=== PATIENT | female | born 1970 | race Caucasian/White ===

== ENCOUNTER 2016-10-24 11:51 | Day surgery (SDC) | payer OTHER ==
[~2016-10-24] VITALS: Ht 166.4 cm; Wt 97.0 kg
[~2016-10-24 11:51] MED LIST: BUPIVACAINE/PF-EPI 0.5% 1:200K ONE; HYDR-3240 PO; MECO5000 PO; OMEP-110 PO; OXYC5CAP4 PO
[2016-10-24 12:20] VITALS: BP 99/67
[2016-10-24] MEDS ORDERED: LIDOCAINE 1%, 2ML ONE (12:26)
[2016-10-24] MEDS ORDERED: LIDOCAINE 1%, 2ML SQ PRN (12:30)
[2016-10-24] MEDS ORDERED: VITA1TAB19 PO (12:33)
[2016-10-24] MEDS ORDERED: PREG75CA PO (12:33)
[2016-10-24] MEDS ORDERED: TIZA4CAP PO (12:33)
[2016-10-24] MEDS ORDERED: PHEN30CA2 PO (12:33)
[2016-10-24] MEDS ORDERED: SOLI10TA PO (12:33)
[2016-10-24] MEDS ORDERED: LORA1TAB PO (12:33)
[2016-10-24] MEDS ORDERED: IBUP800T PO (12:33)
[2016-10-24 12:41] LABS: HCG UR OBC PASS
[2016-10-24] MEDS: LACTATED RINGERS 1,000 ML IV SCH ×2 (12:52→15:08)
[2016-10-24] MEDS ORDERED: SUCCINYLCHOLINE 20 MG/ML, 10ML ONE (16:02)
[2016-10-24] MEDS ORDERED: CEFOTETAN 2 GM ONE (16:02)
[2016-10-24] MEDS ORDERED: ONDANSETRON 2MG/ML, 2ML ONE (16:02)
[2016-10-24] MEDS ORDERED: PROPOFOL 10 MG/ML, 20ML ONE (16:02)
[2016-10-24] MEDS ORDERED: ESMOLOL 100 MG/10 ML ONE (16:02)
[2016-10-24] MEDS ORDERED: ROCURONIUM 10 MG/ML ONE (16:02)
[2016-10-24] MEDS ORDERED: DEXAMETHASONE 4 MG/ML, 1ML ONE (16:02)
[2016-10-24] MEDS ORDERED: MIDAZOLAM 1 MG/ML, 2ML ONE (16:03)
[2016-10-24] MEDS ORDERED: FENTANYL PF 250 MCG/5ML ONE (16:03)
[2016-10-24] MEDS ORDERED: BUPIVACAINE/PF-EPI 0.25% 1:200K INFIL ONE (16:21)
[2016-10-24] MEDS ORDERED: LACTATED RINGERS 1,000 ML IV SCH (16:59)
[2016-10-24] MEDS ORDERED: hydrALAzine 20 MG/ML, 1ML IV PRN (17:00)
[2016-10-24] MEDS ORDERED: ONDANSETRON 2MG/ML, 2ML IVPush PRN ×2 (17:00)
[2016-10-24] MEDS ORDERED: MIDAZOLAM 1 MG/ML, 2ML IV PRN (17:00)
[2016-10-24] MEDS ORDERED: PROMETHAZINE 25 MG/ML, 1ML IV PRN (17:00)
[2016-10-24] MEDS ORDERED: MEPERIDINE/PF 25MG/0.5ML IVPush PRN (17:00)
[2016-10-24] MEDS ORDERED: HYDROcodone/APAP 7.5-325MG/15ML UDC PO PRN ×2 (17:00)
[2016-10-24] MEDS ORDERED: LABETALOL 5MG/ML, 20ML IV PRN (17:00)
[2016-10-24] MEDS ORDERED: EPHEDRINE 50 MG/ML, 1ML IVPush PRN (17:00)
[2016-10-24] MEDS ORDERED: KETOROLAC 30 MG/1 ML IV PRN (17:00)
[2016-10-24] MEDS ORDERED: HYDROmorphone 1 MG/ML, 1ML IV PRN (17:00)
[2016-10-24] MEDS ORDERED: ACETAMINOPHEN 325 MG TABLET PO PRN (17:00)
[2016-10-24] MEDS ORDERED: KETOROLAC 30 MG/1 ML IVPush PRN (17:00)
[2016-10-24] MEDS ORDERED: HYDROmorphone 2 MG/ML, 1ML IVPush PRN (17:00)
[2016-10-24] MEDS ORDERED: OXYcodone 5 MG/5 ML ORAL.SOL UDC PO PRN (17:00)
[2016-10-24] MEDS ORDERED: KETOROLAC 30 MG/1 ML ONE (17:09)
[2016-10-24] MEDS ORDERED: FENTANYL PF 100 MCG/2ML ONE (17:09)
[2016-10-24] MEDS: FENTANYL PF 100 MCG/2ML IV PRN ×2 (17:15→17:24)
[2016-10-24] MEDS ORDERED: OXYcodone 5 MG/5 ML ORAL.SOL UDC ONE (17:26)
[2016-10-24] MEDS ORDERED: HYDROmorphone 1 MG/ML, 1ML ONE (17:29)
[2016-10-24] MEDS ORDERED: MEPERIDINE/PF 50 MG/ML ONE (17:45)
== END 2016-10-24 19:30 | disposition home or self-care (01) ==
LOC: OUT 11:51
PROVIDERS: ATTEND Thoracic Surgery (Cardiothoracic Vascular Surgery)
DX: K44.9 Diaphragmatic hernia without obstruction or gangrene (principal); K21.9 Gastro-esophageal reflux disease without esophagitis; E66.9 Obesity, unspecified; Z68.35 Body mass index [BMI] 35.0-35.9, adult; G89.29 Other chronic pain; Z87.891 Personal history of nicotine dependence; M19.90 Unspecified osteoarthritis, unspecified site; Z87.442 Personal history of urinary calculi; Z90.49 Acquired absence of other specified parts of digestive tract; Z98.890 Other specified postprocedural states; Z72.89 Other problems related to lifestyle; Z88.6 Allergy status to analgesic agent; Z82.49 Family history of ischemic heart disease and other diseases of the circulatory system
CPT/HCPCS: 43280; 81025; J0330; J1100; J1170; J1885; J2175; J2250; J2405; J2704; J3010; J3490; J7120; S0074

== ENCOUNTER → 2020-03-25 | Outpatient (CLI) | payer OTHER ==
[~2020-03-25] MED LIST changes: -BUPIVACAINE/PF-EPI 0.5% 1:200K ONE; +CLON-364 PO; +CYCL-259 PO; +IBUP-1223 PO; +LORA1TAB PO; -MECO5000 PO; +MIRA50TA PO; +OXYC5CAP2 PO; -OXYC5CAP4 PO; +PHEN30CA3 PO; +PREG75CA PO; +SOLI10TA2 PO; +TIZA4CAP PO; +VITA1TAB19 PO; +[UNRECOGNIZED DRUG - CODE] PO
== END | disposition home or self-care (01) ==
LOC: STAR 08:53
PROVIDERS: ATTEND Thoracic Surgery (Cardiothoracic Vascular Surgery)
DX: Z01.818 Encounter for other preprocedural examination (principal); N94.6 Dysmenorrhea, unspecified; N92.0 Excessive and frequent menstruation with regular cycle; N39.3 Stress incontinence (female) (male); K44.9 Diaphragmatic hernia without obstruction or gangrene; Z20.828 Contact with and (suspected) exposure to other viral communicable diseases
CPT/HCPCS: 36415; 87635

== ENCOUNTER 2020-03-30 10:28 | Day surgery (SDC) | payer OTHER ==
[~2020-03-30] VITALS: Ht 165.1 cm; Wt 95.5 kg
[~2020-03-30 10:28] MED LIST changes: +BUPIVACAINE/PF 0.5% ONE; +EPINEPHRINE 1 MG/ML, 1ML ONE
[2020-03-30 11:00] VITALS: BP 120/81
[2020-03-30] MEDS ORDERED: TYLENOL PO (11:05)
[2020-03-30 11:09] LABS: HCG UR SG 1.031 (1.003-1.030)
[2020-03-30] MEDS ORDERED: CHLORHEXIDINE 15 ML UDC ONE (11:11)
[2020-03-30] MEDS ORDERED: LACTATED RINGERS 1,000 ML IV SCH ×2 (11:30→15:00)
[2020-03-30] MEDS ORDERED: CHLORHEXIDINE 15 ML UDC MM ONE (11:30)
[2020-03-30] MEDS ORDERED: FENTANYL PF 250 MCG/5ML ONE (12:49)
[2020-03-30] MEDS ORDERED: CEFAZOLIN 1,000 MG ONE (13:06)
[2020-03-30] MEDS ORDERED: SUCCINYLCHOLINE 20 MG/ML, 10ML ONE (13:06)
[2020-03-30] MEDS ORDERED: PROPOFOL 10 MG/ML, 20ML ONE (13:06)
[2020-03-30] MEDS ORDERED: GLYCOPYRROLATE 0.2MG/1ML, 5ML ONE (13:06)
[2020-03-30] MEDS ORDERED: ONDANSETRON 2MG/ML, 2ML ONE (13:06)
[2020-03-30] MEDS ORDERED: DEXAMETHASONE 4 MG/ML, 1ML ONE (13:06)
[2020-03-30] MEDS ORDERED: ROCURONIUM 10 MG/ML,10ML ONE (13:06)
[2020-03-30] MEDS ORDERED: NEOSTIGMINE 1 MG/ML, 10ML ONE (13:06)
[2020-03-30] MEDS ORDERED: BUPIVACAINE/PF-EPI 0.5% 1:200K INFIL ONE (13:20)
[2020-03-30] MEDS ORDERED: FENTANYL PF 100 MCG/2ML ONE ×5 (13:26→14:53)
[2020-03-30] MEDS ORDERED: DIAZEPAM 5 MG/ML, 2ML ONE (14:41)
[2020-03-30] MEDS ORDERED: MEPERIDINE/PF 25MG/0.5ML IVPush PRN (15:00)
[2020-03-30] MEDS ORDERED: METHOCARBAMOL 1,000 MG in DEXTROSE 5% 100 ML IV PRN (15:00)
[2020-03-30] MEDS ORDERED: LORazepam 2 MG/ML, 1ML IVPush PRN (15:00)
[2020-03-30] MEDS ORDERED: FAMOTIDINE 20 MG TABLET PO SCH (15:00)
[2020-03-30] MEDS ORDERED: PROMETHAZINE 25 MG/ML, 1ML IVPush PRN (15:00)
[2020-03-30] MEDS ORDERED: HYDROcodone/APAP 7.5-325MG/15ML UDC PO PRN (15:00)
[2020-03-30] MEDS ORDERED: OXYcodone 5 MG/5 ML ORAL.SOL UDC PO PRN (15:00)
[2020-03-30] MEDS ORDERED: ACETAMINOPHEN 325 MG TABLET PO PRN (15:00)
[2020-03-30] MEDS ORDERED: EPHEDRINE 50 MG/ML, 1ML IVPush PRN (15:00)
[2020-03-30] MEDS ORDERED: ENALAPRILAT 1.25 MG/ML, 2ML IV PRN (15:00)
[2020-03-30] MEDS ORDERED: hydrALAzine 20 MG/ML, 1ML IV PRN ×2 (15:00)
[2020-03-30] MEDS ORDERED: morphine SULFATE 10 MG/ML, 1ML IV PRN (15:00)
[2020-03-30] MEDS ORDERED: PROMETHAZINE 12.5 MG SUPP PR PRN (15:00)
[2020-03-30] MEDS ORDERED: EPHEDRINE 50 MG/ML, 1ML IM PRN (15:00)
[2020-03-30] MEDS: FENTANYL PF 100 MCG/2ML IV PRN ×3 (15:00→15:34)
[2020-03-30] MEDS ORDERED: DIPHENHYDRAMINE 50 MG/ML, 1ML IV PRN (15:00)
[2020-03-30] MEDS ORDERED: DIAZEPAM 5 MG/ML, 2ML IVPush PRN ×2 (15:00→15:30)
[2020-03-30] MEDS ORDERED: ONDANSETRON 2MG/ML, 2ML IVPush PRN ×2 (15:00)
[2020-03-30] MEDS ORDERED: LABETALOL 5MG/ML, 20ML IV PRN (15:00)
[2020-03-30] MEDS ORDERED: LORazepam 1MG TABLET PO PRN (15:00)
[2020-03-30] MEDS ORDERED: MIDAZOLAM 1 MG/ML, 2ML IV PRN (15:00)
[2020-03-30] MEDS ORDERED: PROMETHAZINE 25 MG/ML, 1ML IM PRN (15:00)
[2020-03-30] MEDS ORDERED: HYDROmorphone 1 MG/ML, 1ML INJ IVPush PRN (15:00)
[2020-03-30] MEDS ORDERED: HYDROmorphone 1 MG/ML, 1ML INJ ONE (15:28)
[2020-03-30] MEDS ORDERED: DIPHENHYDRAMINE 50 MG/ML, 1ML ONE (15:53)
[2020-03-30] MEDS ORDERED: OXYcodone 5 MG/5 ML ORAL.SOL UDC ONE (15:59)
[2020-03-31] MEDS ORDERED: ENOXAPARIN 40 MG/0.4 ML SQ SCH (09:00)
== END 2020-03-30 17:30 | disposition home or self-care (01) ==
LOC: OUT 10:28
PROVIDERS: ATTEND Thoracic Surgery (Cardiothoracic Vascular Surgery)
DX: K44.9 Diaphragmatic hernia without obstruction or gangrene (principal); K21.9 Gastro-esophageal reflux disease without esophagitis; M19.90 Unspecified osteoarthritis, unspecified site; F17.210 Nicotine dependence, cigarettes, uncomplicated; F12.90 Cannabis use, unspecified, uncomplicated; Z88.8 Allergy status to other drugs, medicaments and biological substances; Z20.828 Contact with and (suspected) exposure to other viral communicable diseases; Z90.49 Acquired absence of other specified parts of digestive tract; Z98.890 Other specified postprocedural states; Z79.899 Other long term (current) drug therapy; Z72.89 Other problems related to lifestyle; Z82.49 Family history of ischemic heart disease and other diseases of the circulatory system
CPT/HCPCS: 43282; 81025; C1781; J0171; J0330; J0690; J1100; J1170; J1200; J2405; J2704; J2710; J2800; J3010; J3360; J7120

== ENCOUNTER 2020-04-11 05:21 | Day surgery (SDC) | payer OTHER ==
[~2020-04-11] VITALS: Ht 166.4 cm; Wt 92.4 kg
[~2020-04-11 05:21] MED LIST changes: -BUPIVACAINE/PF 0.5% ONE; -EPINEPHRINE 1 MG/ML, 1ML ONE; +TYLENOL PO
[2020-04-11] MEDS ORDERED: HYDROCODONE PO (06:11)
[2020-04-11 06:14] VITALS: BP 97/68
[2020-04-11 06:14] LABS: HCG UR SG 1.021 (1.003-1.030)
[2020-04-11] MEDS ORDERED: CHLORHEXIDINE 15 ML UDC MM ONE (06:30)
[2020-04-11] MEDS ORDERED: LACTATED RINGERS 1,000 ML IV SCH ×2 (06:30→10:00)
[2020-04-11] MEDS ORDERED: FLUORESCEIN SODIUM 500 MG/5 ML ONE (06:40)
[2020-04-11] MEDS ORDERED: BUPIVACAINE/PF 0.25% ONE (06:40)
[2020-04-11] MEDS ORDERED: EPINEPHRINE 1 MG/ML, 1ML ONE (06:40)
[2020-04-11] MEDS ORDERED: INDIGO CARMINE 0.8%, 5ML ONE (06:54)
[2020-04-11] MEDS ORDERED: FENTANYL PF 250 MCG/5ML ONE (07:14)
[2020-04-11] MEDS ORDERED: MIDAZOLAM 1 MG/ML, 2ML ONE (07:14)
[2020-04-11] MEDS ORDERED: SCOPOLAMINE 1MG PATCH TD SCH (07:30)
[2020-04-11] MEDS ORDERED: DIAZEPAM 5 MG TABLET PO ONE (07:30)
[2020-04-11] MEDS ORDERED: ACETAMINOPHEN 500 MG TABLET PO ONE (07:30)
[2020-04-11] MEDS ORDERED: HYDROmorphone 1 MG/ML, 1ML INJ IVPush PRN (08:30)
[2020-04-11] MEDS ORDERED: ALBUTEROL SULFATE 2.5 MG/3 ML NPPB PRN (08:30)
[2020-04-11] MEDS ORDERED: LABETALOL 5MG/ML, 20ML IV PRN (08:30)
[2020-04-11] MEDS ORDERED: METHOCARBAMOL 1,000 MG in DEXTROSE 5% 100 ML IV PRN (08:30)
[2020-04-11] MEDS ORDERED: MEPERIDINE/PF 25MG/0.5ML IVPush PRN (08:30)
[2020-04-11] MEDS ORDERED: OXYcodone 5 MG/5 ML ORAL.SOL UDC PO PRN (08:30)
[2020-04-11] MEDS ORDERED: PROMETHAZINE 25 MG/ML, 1ML IVPush PRN (08:30)
[2020-04-11] MEDS ORDERED: LORazepam 2 MG/ML, 1ML IVPush PRN (08:30)
[2020-04-11] MEDS ORDERED: hydrALAzine 20 MG/ML, 1ML IV PRN (08:30)
[2020-04-11] MEDS ORDERED: FENTANYL PF 100 MCG/2ML ONE ×2 (09:12→09:51)
[2020-04-11] MEDS ORDERED: ROCURONIUM 10MG/ML,5ML ONE (09:25)
[2020-04-11] MEDS ORDERED: DEXAMETHASONE 4 MG/ML, 1ML ONE (09:25)
[2020-04-11] MEDS ORDERED: CEFAZOLIN 1,000 MG ONE (09:25)
[2020-04-11] MEDS ORDERED: PROPOFOL 10 MG/ML, 20ML ONE (09:25)
[2020-04-11] MEDS ORDERED: GLYCOPYRROLATE 0.2MG/1ML, 5ML ONE (09:25)
[2020-04-11] MEDS ORDERED: NEOSTIGMINE 1 MG/ML, 10ML ONE (09:25)
[2020-04-11] MEDS ORDERED: ONDANSETRON 2MG/ML, 2ML ONE (09:25)
[2020-04-11] MEDS: FENTANYL PF 100 MCG/2ML IV PRN ×2 (09:50→10:20)
[2020-04-11] MEDS ORDERED: ACETAMINOPHEN 650 MG/20.3 ML UDC ONE (09:52)
[2020-04-11] MEDS ORDERED: OXYcodone 5 MG/5 ML ORAL.SOL UDC ONE (09:52)
[2020-04-11] MEDS ORDERED: OPIUM/BELLADONNA SUPP.RECT 16.2-60 MG PR ONE (10:00)
[2020-04-11] MEDS ORDERED: HYDROcodone/APAP 7.5-325MG/15ML UDC PO PRN (10:00)
[2020-04-11] MEDS ORDERED: IBUPROFEN 600 MG TABLET PO PRN (10:00)
[2020-04-11] MEDS ORDERED: ONDANSETRON 2MG/ML, 2ML IVPush PRN (10:00)
[2020-04-11] MEDS ORDERED: PROMETHAZINE 25 MG SUPP PR ONE (10:00)
[2020-04-11] MEDS ORDERED: OPIUM/BELLADONNA SUPP.RECT 16.2-60 MG ONE (10:01)
[2020-04-11] MEDS ORDERED: KETOROLAC 30 MG/1 ML ONE (10:10)
[2020-04-11] MEDS ORDERED: SUGAMMADEX 200 MG/2 ML IVPush ONE (10:10)
[2020-04-11] MEDS ORDERED: ACETAMINOPHEN 325 MG TABLET PO PRN (10:30)
[2020-04-11] MEDS ORDERED: LORazepam 2 MG/ML, 1ML ONE (10:36)
== END 2020-04-11 13:00 | disposition home or self-care (01) ==
LOC: OR 05:21 → OUT 13:00
PROVIDERS: ATTEND Obstetrics & Gynecology Female Pelvic Medicine and Reconstructive Surgery
DX: N92.0 Excessive and frequent menstruation with regular cycle (principal); N94.6 Dysmenorrhea, unspecified; N80.0 Endometriosis of uterus; N72 Inflammatory disease of cervix uteri; N87.9 Dysplasia of cervix uteri, unspecified; N32.81 Overactive bladder; N81.6 Rectocele; N39.0 Urinary tract infection, site not specified; G43.909 Migraine, unspecified, not intractable, without status migrainosus; K21.9 Gastro-esophageal reflux disease without esophagitis; Z79.899 Other long term (current) drug therapy; Z87.891 Personal history of nicotine dependence; Z87.442 Personal history of urinary calculi; Z90.49 Acquired absence of other specified parts of digestive tract; Z98.890 Other specified postprocedural states
CPT/HCPCS: 58552; 81025; 87635; 88307; J0171; J0690; J1100; J1885; J2060; J2250; J2405; J2704; J2800; J3010; J7120; S2900; J2710